=== PATIENT | male | born 1995 ===

== ENCOUNTER 2020-03-25 19:07 | Outpatient (REF) | payer BC, SELFPAY ==
[2020-03-25 22:18] LABS: Calculated LDL 184 mg/dL (<100); Cholesterol 259 mg/dL (<200); HDL Cholesterol 34 mg/dL (40-60); Triglyceride 206 mg/dL (<150)
== END 2020-03-25 19:27 ==
LOC: NCHCN 19:07
PROVIDERS: Visit Provider Registered Nurse
DX: Z00.00 Encounter for general adult medical examination without abnormal findings (principal); F41.1 Generalized anxiety disorder; F32.1 Major depressive disorder, single episode, moderate; Z13.220 Encounter for screening for lipoid disorders; Z72.0 Tobacco use
CPT/HCPCS: 80061

== ENCOUNTER 2024-10-24 21:41 | Outpatient (REF) | payer BC, SELFPAY ==
[2024-10-24 21:34] LABS: HCT 43.2 % (40.0-50.0); HGB 14.2 g/dL (13.5-17.5); MCH 27.8 pg (27.0-33.0); MCHC 32.9 % (32.0-36.0); MCV 85 fL (80-95); MPV 9.3 fL (8.0-11.0); Platelet Count 349 10^3/uL (130-400); RBC 5.11 10^6/uL (4.36-5.78); RDW 12.5 % (11.8-14.1); RDW-SD 38.1 fL; WBC 7.05 10^3/uL (4.4-10.8)
[2024-10-24 21:41] LABS: ESR 17 mm/hr (0-15)
[2024-10-24 21:42] LABS: ALT 62 U/L (16-63); AST 30 U/L (15-37); Albumin 4.5 g/dL (3.4-5.0); Alkaline Phosphatase 97 U/L (46-116); Anion Gap 11.0 mmol/L (3-11); BUN 11 mg/dL (7-18); Bilirubin, Total 0.3 mg/dL (0.2-1.0); CO2 26.0 mmol/L (21.0-32.0); Calcium 9.3 mg/dL (8.5-10.1); Chloride 103 mmol/L (98-107); Estimated GFR 124.40 (mL/min/1.73m2); Glucose 85 mg/dL (74-106); Potassium 4.0 mmol/L (3.5-5.1); Sodium 140 mmol/L (136-145); Total Protein 8.5 g/dL (6.4-8.2)
[2024-10-24 21:43] LABS: C-Reactive Protein < 0.50 mg/dL (<or=0.5)
== END 2024-10-24 21:42 | disposition home or self-care (01) ==
LOC: NCHCN 21:41
PROVIDERS: Visit Provider Physician Assistant
DX: G44.52 New daily persistent headache (NDPH) (principal)
CPT/HCPCS: 80053; 85027; 85652; 86140